=== PATIENT | female | born 1990 | race Caucasian/White ===

== ENCOUNTER 2020-06-05 17:05 | Emergency (ER) | payer SELFPAY ==
[~2020-06-05] VITALS: Ht 162.6 cm; Wt 52.2 kg
--- NOTE | 2020-06-05 17:29 | NUR ---
[email or web address], medical screening exam in progress
[2020-06-05] MEDS ORDERED: LORA-259 PO (17:33)
--- NOTE | 2020-06-05 17:40 | NUR ---
Patient discharged to home in stable condition with brisk steady gait. Written and verbal after care instructions given. Patient verbalizes understanding & compliance of instructions. Stressed follow up with your primary doctor or return to ER for worsening s/s.
[2020-06-05] MEDS ORDERED: LORAZEPAM 1 MG TABLET ONE (17:42)
[2020-06-05] MEDS ORDERED: LORAZEPAM 0.5 MG TABLET PO ONE (17:45)
== END 2020-06-05 17:41 | disposition home or self-care (01) ==
LOC: ER 17:09
DX: F41.9 Anxiety disorder, unspecified (principal)
CPT/HCPCS: A4663